=== PATIENT | male | born 1990 | race American Indian/Alaskan Native ===

== ENCOUNTER 2017-09-02 19:22 | Emergency (ER) | payer OTHER ==
[2017-09-02 19:28] VITALS: TEMP 99.9
[2017-09-02] MEDS ORDERED: Sodium Chloride 0.9% 1,000 ML IV STA ×2 (19:46→22:17)
--- NOTE | 2017-09-02 19:54 | ED PDOC ---
Arrival/HPI - General Historian: Patient - History of Present Illness Time/Duration: > week Symptom Onset: Gradual Symptom Course: Unchanged Quality: Cramping Severity Level: Moderate Activities at Onset: Rest Context: Home - General Chief Complaint: GI Problem Time Seen by Provider: 09/02/17 19:24 - History of Present Illness Narrative History of Present Illness (Text): 09/02/17 19:48 27yo M PH HIV (non-compliant with meds, hasn't taken anti-virals in years) presenting with fevers/chills, n/v/d, headaches and rhinorrhea x8days. pt states that vomiting started today, and it is non-bilious and non-bloody. abdominal pain is described as being diffuse. pt states he has not been taking his anti-virals and not f/u @ [facility] because he didn't like the meds he was put on; pt does not know the state of his HIV condition, CD4 or viral count. pt denies sick contacts, recent travel, chest pain, sob, weakness. pt denies tobacco and ETOH use but does admit to marijuana use. pt is homosexual and partner is bedside. (Jhonny Ye) Past Medical History - Provider Review Nursing Documentation Reviewed: Yes - Past History Past History: Non-Contributing - Cardiac Hx Cardiac Disorders: No - Pulmonary Hx Respiratory Disorders: No - Neurological Hx Neurological Disorder: No - HEENT Hx HEENT Disorder: No - Renal Hx Renal Disorder: No - Endocrine/Metabolic Hx Endocrine Disorders: No - Hematological/Oncological Hx Blood Disorders: Yes Hx HIV: Yes - Integumentary Hx Dermatological Disorder: No - Musculoskeletal/Rheumatological Hx Musculoskeletal Disorders: No - Gastrointestinal Hx Gastrointestinal Disorders: No - Genitourinary/Gynecological Hx Genitourinary Disorders: No - Psychiatric Hx Psychophysiologic Disorder: No Hx Substance Use: Yes (CANNABIS) - Past Surgical History Past Surgical History: No Previous Family/Social History - Physician Review Nursing Documentation Reviewed: Yes Family/Social History: No Known Family HX Smoking Status: Former Smoker Hx Alcohol Use: Yes Frequency of alcohol use: Socially Hx Substance Use: Yes (CANNABIS) Allergies/Home Meds Allergies/Adverse Reactions: Allergies No Known Allergies Allergy (Verified 09/02/17 19:23) Review of Systems - Physician Review All systems were reviewed & negative as marked: Yes - Review of Systems Constitutional: Fevers, Night Sweats Respiratory: absent: SOB, Cough, Wheezing Cardiovascular: absent: Chest Pain, Palpitations Gastrointestinal: Abdominal Pain, Diarrhea, Nausea, Vomiting. absent: Hematochezia, Hematemesis Musculoskeletal: Myalgias Neurological: Headache Physical Exam Vital Signs Reviewed: Yes Appearance: Positive for: Well-Appearing Pain Distress: None Mental Status: Positive for: Alert and Oriented X 3 - Systems Exam Head: Present: Atraumatic, Normocephalic Pupils: Present: PERRL Extroacular Muscles: Present: EOMI Conjunctiva: Present: Normal Mouth: Present: Moist Mucous Membranes Respiratory/Chest: Present: Clear to Auscultation, Good Air Exchange. No: Respiratory Distress, Accessory Muscle Use, Wheezes Cardiovascular: Present: Normal S1, S2, Tachycardic Abdomen: Present: Tenderness (moderate diffuse tenderness to palpation), Normal Bowel Sounds. No: Distention, Peritoneal Signs, Rebound, Guarding Back: Present: Normal Inspection. No: CVA Tenderness Upper Extremity: Present: Normal Inspection, Normal ROM Lower Extremity: Present: Normal Inspection. No: Edema Neurological: Present: CN II-XII Intact, Speech Normal, Motor Func Grossly Intact, Normal Sensory Function Skin: Present: Warm, Dry, Normal Color Psychiatric: Present: Alert, Oriented x 3 Vital Signs Temp Pulse Resp BP Pulse Ox 09/02/17 22:26 86 18 101/63 95 09/02/17 19:24 99.9 F H 135 H 17 119/80 97 Medical Decision Making Re-evaluation Time: 23:40 Reassessment Condition: Re-examined, Improved - Lab Interpretations I have reviewed the lab results: Yes - RAD Interpretation Spare Hand Carding: Radiologist - EKG Interpretation Interpreted by ED Physician: Yes Type: 12 lead EKG ED Course and Treatment: Impression: Pt seen and evaluated with diagnostic medical sonographer. Pt, whose past medical history includes HIV, presented for nausea, vomiting, diarrhea, rhinorrhea, and headaches for 8 days. Aware and agree with HPI, clinical findings, plan, and management. Plan: -- CT Abdomen and Pelvis -- CXR -- Labs, VBG, blood cultures -- Urinalysis, urine cultures -- IV fluids -- Zofran -- Tylenol -- Reassess and disposition (Abhi Ansari) 09/02/17 19:58 Impression: 27yo M HIV+ presenting with flu symptoms x8 days Plan: - Labs - Blood and Urine Cxs - VBG shock panel - CXR - Abdominal CT - 1L NS bolus - Zofran - Tylenol - Reassess and Dispo Progress: 09/02/17 22:18 - Reassessment: pt complaining of epigastric discomfort/indigestion, but states improvement with fluids. PTX and IVF ordered. EKG ordered. CT Scan ABD/PELVIS W/O PO OR IV CONT Report Date : 09/02/2017 23:10:00 Creator : YEMI LAGUERRE FINDINGS: Limitations: Lack of oral and intravenous contrast and paucity of body fat limits evaluation of the abdomen and pelvis. Lower thorax: Heart size is normal. There is minimal scarring at the lung bases. There is no focal consolidation ABDOMEN: Liver: unremarkable Gallbladder and bile ducts: unremarkable Pancreas: unremarkable Spleen: unremarkable Adrenals: unremarkable Kidneys and ureters: Kidneys are unremarkable. Ureters are difficult to identify. Stomach and bowel: unremarkable Appendix: Stomach is empty. Rotation is normal. Small bowel is mildly distended with fluid and air. Ileocecal region is poorly defined. Appendix could not be identified. There is an air-fluid level in the cecum. There is a trace amount of radiopaque material in the cecum.Colon is incompletely distended which limits evaluation. PELVIS: Bladder: unremarkable Reproductive: Seminal vesicles and prostate are unremarkable. ABDOMEN and PELVIS: Intraperitoneal space: There is no definite free fluid in the pelvis.There is no free air. Bones/joints: There are no acute osseous abnormalities. Soft tissues: See above. Vasculature: Aorta is normal in caliber. Lymph nodes: The paucity of fat and lack of contrast limits evaluation of nodes. IMPRESSION: Limited by lack of oral and intravenous contrast and paucity of body fat, no bowel obstruction, air-fluid levels in the colon consistent with diarrheal illness; no acute solid visceral abnormality; no focal pneumonia CXR unremarkable, as read by me. Reassessment: pt feeling better, and denying complaints of n/v/d currently and denying fevers/chills. explained to pt about d/c instructions and proper f/u, pt understands. (Jhonny Ye) - Lab Interpretations Lab Results: 09/02/17 19:50 09/02/17 19:50 Lab Results 09/02/17 21:02: Urine Color Yellow, Urine Appearance Sl cloudy, Urine pH 6.0, Ur Specific [place] >= 1.030, Urine Protein 100 H, Urine Glucose (UA) Negative, Urine Ketones Negative, Urine Blood Negative, Urine Nitrate Negative, Urine Bilirubin Negative, Urine Urobilinogen 0.2, Ur Leukocyte Esterase Negative, Urine RBC Negative, Urine WBC 5 - 10, Ur Epithelial Cells 4 - 5, Urine Bacteria Few, Coarse Granular Casts Trace H 09/02/17 19:50: Sodium 139, Chloride 101, Potassium 3.6, Carbon Dioxide 26, Anion Gap 16, BUN 11, Creatinine 1.0, Est GFR ( Amer) > 60, Est GFR (Non- Af Amer) > 60, Random Glucose 105, Calcium 9.5, Phosphorus 2.1 L, Magnesium 1.5 L, Total Bilirubin 0.5, AST 21, ALT 22, Alkaline Phosphatase 57, Total Protein 8.3, Albumin 4.5, Globulin 3.8, Albumin/Globulin Ratio 1.2 09/02/17 19:50: pO2 47, VBG pH 7.37, VBG pCO2 45.0, VBG HCO3 26.0, VBG Total CO2 27.4, VBG O2 Sat (Calc) 86.8 H, VBG Base Excess 0.3, VBG Potassium 3.4 L, Sodium 135.0, Chloride 102.0, Glucose 103, Lactate 1.7, FiO2 21.0, Venous Blood Potassium 3.4 L 09/02/17 19:50: WBC 4.6, RBC 4.95, Hgb 13.8 L, Hct 40.8 L, MCV 82.4, MCH 27.9, MCHC 33.8, RDW 11.9, Plt Count 208, MPV 9.3, Gran % 67.0, Lymph % (Auto) 16.7 L , Rains % (Auto) 16.1 H, Eos % (Auto) 0.0 L, Baso % (Auto) 0.2, Gran # 3.08, Lymph # 0.8 L, Rains # 0.7 H, Eos # 0.0, Baso # 0.01 - RAD Interpretation Radiology Orders: 09/02/17 19:46 ABD & PELVIS W/O PO OR IV CONT [CT] Stat CHEST PORTABLE [RAD] Stat - Medication Orders Current Medication Orders: Discontinued Medications Acetaminophen (Tylenol 325mg Tab) 650 mg PO STAT STA Stop: 09/02/17 20:05 Last Admin: 09/02/17 20:09 Dose: 650 mg MAR Pain/Vitals Document 09/02/17 20:09 GMD (Rec: 09/02/17 20:09 GMD [id number]) Pain Reassessment Is This A Pain ReAssessment? No Sleep Is patient sleeping during reassessment? No Presence of Pain Presence of Pain Yes Sodium Chloride (Sodium Chloride 0.9%) 1,000 mls @ 999 mls/hr IV .Q1H1M STA Stop: 09/02/17 20:46 Last Admin: 09/02/17 20:08 Dose: 999 mls/hr eMAR Start Stop Document 09/02/17 20:08 GMD (Rec: 09/02/17 20:08 GMD [id number]) Intravenous Solution Start Date 09/02/17 Start Time 20:08 End Date 09/02/17 End time 21:09 Total Infusion Time 61 Sodium Chloride (Sodium Chloride 0.9%) 1,000 mls @ 999 mls/hr IV .Q1H1M STA Stop: 09/02/17 23:17 Last Admin: 09/02/17 22:32 Dose: 999 mls/hr eMAR Start Stop Document 09/02/17 22:32 GMD (Rec: 09/02/17 22:32 GMD [id number]) Intravenous Solution Start Date 09/02/17 Start Time 22:32 End Date 09/02/17 End time 23:33 Total Infusion Time 61 Ondansetron HCl (Zofran Inj) 4 mg IVP STAT STA Stop: 09/02/17 19:47 Last Admin: 09/02/17 20:09 Dose: 4 mg IVP Administration Document 09/02/17 20:09 GMD (Rec: 09/02/17 20:09 GMD [id number]) Charges for Administration # of IVP Administrations 1 Pantoprazole Sodium (Protonix Inj) 40 mg IVP STAT STA Stop: 09/02/17 22:17 Last Admin: 09/02/17 22:32 Dose: 40 mg IVP Administration Document 09/02/17 22:32 GMD (Rec: 09/02/17 22:32 GMD [id number]) Charges for Administration # of IVP Administrations 1 Disposition/Present on Arrival - Present on Arrival Any Indicators Present on Arrival: No History of DVT/PE: No History of Uncontrolled Diabetes: No Urinary Catheter: No History of Decub. Ulcer: No History Surgical Site Infection Following: None - Disposition Have Diagnosis and Disposition been Completed?: Yes Disposition Time: 23:42 Patient Plan: Discharge - Disposition Diagnosis: Flu-like symptoms, Nausea & vomiting, Diarrhea, Gastroenteritis Disposition: HOME/ ROUTINE Condition: GOOD Discharge Instructions (ExitCare): Gastroenteritis (ED) Additional Instructions: - please take the meds as prescribed - please f/u at either [facility] or with ID MD (Dr. Gleason) for you HIV history - if you experiencing worsening of fevers/chills, nausea/vomiting or diarrhea please return to ER for further workup Prescriptions: metroNIDAZOLE [Flagyl] 500 mg PO Q8H #21 tab Ondansetron ODT [Zofran ODT] 8 mg PO TID #12 odt Referrals: PCP,NO [Primary Care Provider] - Follow up with primary Pavel Gleason MD [Staff Provider] - Follow up with primary [facility] at [facility] [place] [Outside] - Follow up with primary Forms: [employer] ([place] [employer])
[2017-09-02 20:11] LABS: VENOUS BLOOD GAS BASE EXCESS 0.3 mmol/L (0.0-2.0); VENOUS BLOOD PH 7.37 (7.32-7.43)
[2017-09-02 20:19] LABS: ALB/GLOB RATIO 1.2 (1.1-1.8); ALKALINE PHOSPHATASE 57 U/L (38-126); ALT/SGPT 22 U/L (7-56); AST/SGOT 21 U/L (17-59); BILIRUBIN,TOTAL 0.5 mg/dL (0.2-1.3); BLOOD UREA NITROGEN 11 mg/dL (7-21); CALCIUM 9.5 mg/dL (8.4-10.5); CARBON DIOXIDE 26 mmol/L (21-33); CHLORIDE 101 mmol/L (98-107); GFR AFRICAN-AMERICAN > 60; GLUCOSE,RANDOM 105 mg/dL (70-110); MAGNESIUM 1.5 mg/dL (1.7-2.2); PHOSPHOROUS 2.1 mg/dL (2.5-4.5); POTASSIUM 3.6 mmol/L (3.6-5.0); SODIUM 139 mmol/L (132-148); TOTAL PROTEIN 8.3 g/dL (5.8-8.3)
[2017-09-02 20:21] LABS: BASO # 0.01 K/mm3 (0.0-2.0); BASO % 0.2 % (0.0-3.0); GRAN # 3.08 (1.4-6.5); HEMATOCRIT 40.8 % (42.0-52.0); LYMPH # 0.8 (1.2-3.4); LYMPH % 16.7 % (22.0-35.0); MEAN CELL VOLUME 82.4 fl (80.0-105.0); MEAN CORPUSCULAR HEMOGLOBIN 27.9 pg (25.0-35.0); MEAN CORPUSCULAR HGB CONC 33.8 g/dl (31.0-37.0); MEAN PLATELET VOLUME 9.3 fl (7.0-11.0); MONO # 0.7 (0.1-0.6); MONO % 16.1 % (1.0-6.0); RED CELL DISTRIBUTION WIDTH 11.9 % (11.5-14.5); WHITE BLOOD COUNT 4.6 10^3/ul (4.5-11.0)
[2017-09-02 21:10] LABS: URINE BILIRUBIN NEGATIVE (NEGATIVE); URINE BLOOD NEGATIVE (NEGATIVE); URINE GLUCOSE (UA) NEGATIVE (NEGATIVE); URINE KETONE NEGATIVE (NEGATIVE); URINE LEUKOCYTE ESTERASE NEGATIVE Leu/uL (NEGATIVE); URINE PROTEIN 100 mg/dL (<30 mg/dL); URINE UROBILINOGEN 0.2 E.U./dL (<1 E.U./dL)
[2017-09-02 21:12] LABS: URINE APPEARANCE SL CLOUDY (CLEAR); URINE COLOR YELLOW (YELLOW)
[2017-09-02 21:25] LABS: URINE RBC NEGATIVE /hpf (0-2)
[2017-09-02 21:26] LABS: URINE BACTERIA FEW (NEG)
--- NOTE | 2017-09-02 23:10 | CT ---
EXAM: CT Abdomen and Pelvis Without Intravenous Contrast EXAM DATE/TIME: 09/02/2017 7:46 PM CLINICAL HISTORY: 27 years old, male; Pain; Abdominal pain; Additional info: N/v/d x8 d TECHNIQUE: Axial computed tomography images of the abdomen and pelvis without intravenous contrast. All CT scans at this facility use one or more dose reduction techniques, viz.: automated exposure control; ma/kV adjustment per patient size (including targeted exams where dose is matched to indication; i.e. head); or iterative reconstruction technique. Coronal reformatted images were created and reviewed. COMPARISON: There are no prior studies for comparison. FINDINGS: Limitations: Lack of oral and intravenous contrast and paucity of body fat limits evaluation of the abdomen and pelvis. Lower thorax: Heart size is normal. There is minimal scarring at the lung bases. There is no focal consolidation ABDOMEN: Liver: unremarkable Gallbladder and bile ducts: unremarkable Pancreas: unremarkable Spleen: unremarkable Adrenals: unremarkable Kidneys and ureters: Kidneys are unremarkable. Ureters are difficult to identify. Stomach and bowel: unremarkable Appendix: Stomach is empty. Rotation is normal. Small bowel is mildly distended with fluid and air. Ileocecal region is poorly defined. Appendix could not be identified. There is an air-fluid level in the cecum. There is a trace amount of radiopaque material in the cecum.Colon is incompletely distended which limits evaluation. PELVIS: Bladder: unremarkable Reproductive: Seminal vesicles and prostate are unremarkable. ABDOMEN and PELVIS: Intraperitoneal space: There is no definite free fluid in the pelvis.There is no free air. Bones/joints: There are no acute osseous abnormalities. Soft tissues: See above. Vasculature: Aorta is normal in caliber. Lymph nodes: The paucity of fat and lack of contrast limits evaluation of nodes. IMPRESSION: Limited by lack of oral and intravenous contrast and paucity of body fat, no bowel obstruction, air-fluid levels in the colon consistent with diarrheal illness; no acute solid visceral abnormality; no focal pneumonia
[2017-09-03 00:28] VITALS: BP 100/68; PULSE 78; RESP 16; O2SAT 99
--- NOTE | 2017-09-03 10:27 | RAD ---
HISTORY: HIV+ p/w cough and fevers COMPARISON: No prior. FINDINGS: LUNGS: No active pulmonary disease. PLEURA: No significant pleural effusion iden low tified, no pneumothorax apparent. CARDIOVASCULAR: Normal. OSSEOUS STRUCTURES: No significant abnormalities. VISUALIZED UPPER ABDOMEN: Normal. OTHER FINDINGS: None. IMPRESSION: No active disease.
--- NOTE | 2017-09-04 12:30 | CARD ---
APPROVED REPORT EKG Measurement Heart [id number] NM [id number] <Conclusion> Normal sinus rhythm with sinus arrhythmia Normal ECG
== END 2017-09-03 00:28 | disposition home or self-care (01) ==
LOC: ED 19:22
DX: K52.9 Noninfective gastroenteritis and colitis, unspecified (principal); J11.1 Influenza due to unidentified influenza virus with other respiratory manifestations; Z87.891 Personal history of nicotine dependence
CPT/HCPCS: 71010; 74176; 80053; 81001; 82803; 83735; 84100; 85025; 87040; 87086; 93005; 96361; 96374; 96375; 99284; C9113; J2405; J7040

== ENCOUNTER 2018-02-23 21:27 | Emergency (ER) | payer OTHER ==
--- NOTE | 2018-02-23 21:32 | ED PDOC ---
Arrival/HPI - General Time Seen by Provider: 02/23/18 21:32 Historian: Patient - History of Present Illness Narrative History of Present Illness (Text): 02/23/18 21:32 28 year old male, no significant pmh, nkda, complaining of wound check s/p I&D abscess on the rt. gluteal and lt. hip region yesterday at [facility] which he has scheduled appointment for the dressing change tomorrow. Pt. is currently on the keflex/bactrimds, stated that the packing fall out today from the incision wound, no fever or chills, pain on the wound is much less, no night sweat, no dizziness, no change in vision, no palpitation, no other medical or psychological complaints. Past Medical History - Provider Review Nursing Documentation Reviewed: Yes - Past History Past History: Non-Contributing - Cardiac Hx Cardiac Disorders: No - Pulmonary Hx Respiratory Disorders: No - Neurological Hx Neurological Disorder: No - HEENT Hx HEENT Disorder: No - Renal Hx Renal Disorder: No - Endocrine/Metabolic Hx Endocrine Disorders: No - Hematological/Oncological Hx Blood Disorders: Yes Hx HIV: Yes - Integumentary Hx Dermatological Disorder: No - Musculoskeletal/Rheumatological Hx Musculoskeletal Disorders: No - Gastrointestinal Hx Gastrointestinal Disorders: No - Genitourinary/Gynecological Hx Genitourinary Disorders: No - Psychiatric Hx Psychophysiologic Disorder: No Hx Substance Use: Yes (CANNABIS) - Past Surgical History Past Surgical History: No Previous Family/Social History - Physician Review Nursing Documentation Reviewed: Yes Family/Social History: Unknown Family HX Smoking Status: Former Smoker Hx Alcohol Use: Yes Hx Substance Use: Yes (CANNABIS) Allergies/Home Meds Allergies/Adverse Reactions: Allergies No Known Allergies Allergy (Verified 02/23/18 21:47) Review of Systems - Review of Systems Constitutional: absent: Fatigue, Fevers Eyes: absent: Vision Changes ENT: absent: Hearing Changes Respiratory: absent: SOB, Cough Cardiovascular: absent: Chest Pain Gastrointestinal: absent: Abdominal Pain, Nausea, Vomiting Skin: Abscess. absent: Rash, Pruritis Neurological: absent: Headache, Dizziness Psychiatric: absent: Anxiety, Depression, Suicidal Ideation Physical Exam - Systems Exam Head: Present: Atraumatic, Normocephalic Pupils: Present: PERRL Extroacular Muscles: Present: EOMI Conjunctiva: Present: Normal Mouth: Present: Moist Mucous Membranes Neck: Present: Normal Range of Motion Respiratory/Chest: Present: Clear to Auscultation, Good Air Exchange. No: Respiratory Distress, Accessory Muscle Use Cardiovascular: Present: Regular Rate and Rhythm, Normal S1, S2. No: Murmurs Abdomen: No: Tenderness, Distention, Peritoneal Signs Back: Present: Normal Inspection Upper Extremity: Present: Normal Inspection. No: Cyanosis, Edema Lower Extremity: Present: Normal Inspection. No: Edema Neurological: Present: GCS=15, Speech Normal, Motor Func Grossly Intact, Gait Normal, Memory Normal Skin: Present: Warm, Dry, Rashes (Lt. hip region visible I&D wound approx. 1cm wound in total with no surround cellulitis or streaking with no packing noted, rt. gluteal buttock region visible approx. 1cm diameter with no packing noted, no cellulitis or streaking, no ulcers. ), Normal Color Psychiatric: Present: Alert, Oriented x 3, Normal Insight, Normal Concentration Medical Decision Making ED Course and Treatment: 02/23/18 21:52 -Wound healing well and dry, clean with betadine and saline, pt. refused repacking with risk and benefits explained, advised to see the surgeon tomorrow for wound re-evaluation, new dressing applied under sterile technique. -Discharge home with education on continue the antibiotic at home, see your specialist for the wound check and dressing change tomorrow, return to the Er for any new or worsening signs or symptoms. - PA / COLLECTION SUPERVISOR / Resident Statement / has reviewed & agrees with the documentation as recorded. Disposition/Present on Arrival - Present on Arrival Any Indicators Present on Arrival: No History of DVT/PE: No History of Uncontrolled Diabetes: No Urinary Catheter: No History of Decub. Ulcer: No History Surgical Site Infection Following: None - Disposition Have Diagnosis and Disposition been Completed?: Yes Diagnosis: Abscess, Visit for wound check Disposition: HOME/ ROUTINE Disposition Time: 21:54 Patient Plan: Transfer To Condition: GOOD Additional Instructions: -Discharge home with education on continue the antibiotic at home, see your specialist for the wound check and dressing change tomorrow, return to the Er for any new or worsening signs or symptoms. Referrals: PCP,NO [Primary Care Provider] - Follow up with primary Suellen Antoine MD [Staff Provider] - Follow up with primary [facility] at [facility] [place] [Outside] - Follow up with primary Forms: [employer] NOTE
[2018-02-23 21:49] VITALS: BMI 20.8
[2018-02-23 21:56] VITALS: RESP 18
[2018-02-23 22:02] VITALS: BP 130/68; PULSE 90; TEMP 98.5; O2SAT 99
[2018-02-23] MEDS ORDERED: Lidocaine 1% Inj (20ml) ONE (22:04)
== END 2018-02-23 22:31 | disposition home or self-care (01) ==
LOC: ED 21:27
DX: Z51.89 Encounter for other specified aftercare (principal)

== ENCOUNTER 2018-12-11 13:10 | Emergency (ER) | payer OTHER, MEDICAID ==
[2018-12-11 13:11] VITALS: BMI 20.8
[2018-12-11 14:19] VITALS: BP 112/69; PULSE 73; RESP 18; TEMP 98.2; O2SAT 97
--- NOTE | 2018-12-11 14:44 | ED PDOC ---
Arrival/HPI - General Chief Complaint: Abnormal Skin Integrity Time Seen by Provider: 12/11/18 14:33 Historian: Patient, Other (partner) - History of Present Illness Time/Duration: 1 week Symptom Onset: Gradual Symptom Course: Worsening Severity Level: Moderate Activities at Onset: Rest Associated Symptoms (Text): 12/11/18 14:41 Patient complains of a breakout of cold sores over both his upper and lower lip bilaterally. Partner reports that he has this approximately once a year, and they are usually able to control it with Abreva, but were unable to do so with this episode. I question the patient about his HIV status, and he reports that he is HIV positive. He last saw a physician approximately 2 years ago. He had been on antivirals, but stopped taking them in favor of trying a diet. He denies any fever. He just got insurance and is going to see a doctor tomorrow. I discussed with the patient and his partner that he will need a workup by his PMD including blood count and viral load. They are agreeable to follow-up with PMD. In the meantime we will treat his herpes outbreak with antivirals. Past Medical History - Past History Past History: Non-Contributing - Cardiac Hx Cardiac Disorders: No - Pulmonary Hx Respiratory Disorders: No - Neurological Hx Neurological Disorder: No - HEENT Hx HEENT Disorder: No - Renal Hx Renal Disorder: No - Endocrine/Metabolic Hx Endocrine Disorders: No - Hematological/Oncological Hx Blood Disorders: Yes - Integumentary Hx Dermatological Disorder: No - Musculoskeletal/Rheumatological Hx Musculoskeletal Disorders: No - Gastrointestinal Hx Gastrointestinal Disorders: No - Genitourinary/Gynecological Hx Genitourinary Disorders: No - Psychiatric Hx Psychophysiologic Disorder: No Hx Substance Use: Yes (CANNABIS) - Past Surgical History Past Surgical History: No Previous - Anesthesia Hx Anesthesia: Yes Hx Anesthesia Reactions: No Hx Malignant Hyperthermia: No Family/Social History - Physician Review Nursing Documentation Reviewed: Yes Family/Social History: Unknown Family HX Smoking Status: Former Smoker Hx Alcohol Use: Yes Hx Substance Use: Yes (CANNABIS) Substance used: daily Allergies/Home Meds Allergies/Adverse Reactions: Allergies No Known Allergies Allergy (Verified 02/23/18 21:47) Review of Systems - Physician Review All systems were reviewed & negative as marked: Yes - Review of Systems Constitutional: absent: Fatigue, Fevers Respiratory: absent: SOB, Cough Gastrointestinal: absent: Abdominal Pain, Diarrhea, Nausea, Vomiting Skin: Rash Neurological: absent: Headache, Dizziness Physical Exam Vital Signs Temp Pulse Resp BP Pulse Ox 12/11/18 13:11 98.2 F 73 18 112/69 97 Temperature: Afebrile Blood Pressure: Normal Pulse: Regular Respiratory Rate: Normal Appearance: Positive for: Well-Appearing, Non-Toxic, Comfortable Pain Distress: None Mental Status: Positive for: Alert and Oriented X 3 - Systems Exam Pupils: Present: PERRL Extroacular Muscles: Present: EOMI Conjunctiva: Present: Normal Mouth: Present: Moist Mucous Membranes. No: Normal Lips (Bilateral upper and lower lips herpes simplex) Pharnyx: No: ERYTHEMA, EXUDATE, TONSILS ENLARGED Skin: Present: Warm, Dry, Normal Color. No: Rashes Disposition/Present on Arrival - Present on Arrival Any Indicators Present on Arrival: No History of DVT/PE: No History of Uncontrolled Diabetes: No Urinary Catheter: No History of Decub. Ulcer: No History Surgical Site Infection Following: None - Disposition Have Diagnosis and Disposition been Completed?: Yes Diagnosis: Herpes gingivostomatitis Disposition: HOME/ ROUTINE Disposition Time: 14:45 Patient Plan: Discharge Condition: GOOD Discharge Instructions (ExitCare): Cold Sores (Oral Herpes) (DC) Prescriptions: Famciclovir [Famvir] 500 mg PO Q8 #21 tab Referrals: Erica Craig MD [Primary Care Provider] - Follow up with primary Forms: [employer] ([employer])
== END 2018-12-11 15:00 | disposition home or self-care (01) ==
LOC: ED 13:10
DX: B00.2 Herpesviral gingivostomatitis and pharyngotonsillitis (principal)